=== PATIENT | male | born 1975 ===

== ENCOUNTER 2025-07-10 08:50 | Outpatient (AMB) | payer OTHER, SELFPAY ==
--- OUTSIDE RECORDS SUMMARY | 2024-07-17 08:00 | XMS_ITS | Encounter Summary ---
Author Organization [facility] Address [address] [place] [address] Care Team Providers Care Machinery Mechanic Name Role Phone Juan Diego Barroso MD Primary Care Provider [phone] Encounter Details Date Type Department Care Team (Late st Contact Info) Description 07/17/2024 8:00 AM EDT Hospital Encounter TH HISTORIC ENCOUNTERS EASTERN CONVERSION ONLY Brant Arce MD [address] [place] [phone] Social History Tobacco Use Types Packs/Day Years Used Date Smoking Tobacco: Never Smokeless Tobacco: Never Alcohol Use Standard Drinks/Week Comments Yes 0 (1 standard drink = 0.6 oz pur e alcohol) Housing Instability Answer Date Recorde d Are you worried that in the next 2 months you may not have stable housing? No 02/04/2025 Food Access & Nutrition Answer Date Rec orded Do you have access to a vari ety of food including fruits and vegetables? Yes 02/04/2025 Access to Healthcare Answer Date Record ed Within the last 3 months, ho w many times did you visit the emergency department for your medical care? 0 02/04/2025 Health Literacy Answer Date Recorded How often do you need to hav e someone help you when you read instructions, pamphlets, or other written material from your doctor or pharmacy? Never 02/04/2025 Caregiver: How often do you need to have someone help you when you read instructions, pamphlets, or other written material from your doctor or pharmacy? Not on file 02/04/2025 Financial Risk Answer Date Recorded How hard is it for you to pa y for the very basics like food, housing, medical care, and air conditioning / heating? Not very hard 02/04/2025 Transportation Answer Date Recorded Has the lack of transportati on kept you from meetings, work, or from getting things needed for daily living? No Has the lack of transportati on kept you from medical appointments or from getting medications? No 02/04/2025 Social Isolation Answer Date Recorded How often do you feel lonely or isolated from those around you? Sometimes 02/04/2025 Food Risk Answer Date Recorded Within the past 12 months we worried whether our food would run out before we got money to buy more. Never true 02/04/2025 Within the past 12 months th e food we bought just didn't last and we didn't have money to get more. Never true 02/04/2025 Dependent Care Answer Date Recorded Do you need help finding or paying for care for your loved ones. For example, home child care provider or elderly care for an older adult? No 02/04/2025 Education Answer Date Recorded Do you think completing more education or training, like finishing a GED, going to college, or learning a trade, would be helpful for you? No 02/04/2025 Employment and Income Answer Date Recor ded During the last four weeks, have you been actively looking for work? No 02/04/2025 Living Situation Answer Date Recorded What is your living situation? Unrecognized valu e 02/04/2025 Sex and Gender Information Value Date Recorded Sex Assigned at Not on file Legal Sex Male 1:02 PM EST Gender Identity Not on file Sexual Orientation Not on file documented as of this encounter Plan of Treatment Upcoming Encounters Date Type Department Care Team (Late st Contact Info) Description 12/30/2025 8:00 AM EDT Office Visit Adult Medicine [address] [phone] Juan Diego Barroso MD [address] [place] [address] 01/15/2026 8:30 AM EDT Consult Bariatric Surgery - [place] [address] [facility] [address] [place] [phone] Daya Gallardo PA [address] [place] [phone] 05/28/2026 8:30 AM EDT Ancillary Procedure Pulmonology - [place] [address] [facility] [address] [place] [phone] 05/28/2026 9:45 AM EDT Office Visit Pulmonology - [place] [address] [facility] [address] [place] [phone] Tammy Benitez, ЕЛЕНА [address] [place] [phone] documented as of this encounter Visit Diagnoses Not on filedocumented in this encounter Care Teams Machinery Mechanic Relationship Specialty Start Date End Date Juan Diego Barroso MD [address] [place] [phone] PCP - General Internal Medicine 06/18/16 documented as of this encounter
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
[2025-07-10 09:00] VITALS: BP 190/104; PULSE 98; RESP 20; O2SAT 99; BMI 38.9
--- OUTSIDE RECORDS SUMMARY | 2025-07-10 09:26 | XMS_ITS ---
Author Name [facility] Care Team Organization Name Specialty Phone Email Start Date End Da te [facility] BRUNILDA [facility] Primary Care 08/17/2022 4
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
--- OUTSIDE RECORDS SUMMARY | 2025-07-10 09:26 | XMS_ITS | Patient Health Record ---
Author Organization [facility] Address [address] [place] [address] Care Team Providers Care Vacuum Evaporation Operator Name Role Phone Juan Diego Barroso MD Primary Care Provider Unavailabl e Reason For Referral No Information Medications Medication SIG (Take, Route, Frequency, Duration) Notes Start Date End Date Status Chlorthalidone 25 MG Tablet 1 tablet in the morning with food Orally Once a day; Duration: 30 day(s) Active Albuterol Sulfate (2.5 MG/3ML) 0.083% Nebulization Solution 3 ml as needed Inhalation every 8 hrs Active Albuterol Sulfate HFA 108 (90 Base) MCG/ACT Aerosol Solution 2 puffs as needed Inhalation every 6 hrs Active Diclofenac Sodium 75 MG Tablet Delayed Release 1 tablet with food or milk Orally Twice a day; Duration: 30 day(s) Active Metoprolol Tartrate 100 MG Tablet 1 tablet with food Orally Twice a day; Duration: 30 day(s) Active Lisinopril 40 MG Tablet 1 tablet Orally Once a day; Duration: 30 day(s) Active amLODIPine Besylate 10 MG Tablet 1 tablet Orally Once a day; Duration: 30 day(s) Active ZTlido 1.8 % Patch 1 patch remove after 12 hours Externally Once a day; Duration: 30 days 08/20/2019 Active Lidocaine 5 % Ointment 1 application as needed Externally Three times a day; Duration: 30 days 09/24/2019 Active Gabapentin 800 MG Tablet 1 tablet Orally tid Active Spiriva HandiHaler 18 MCG Capsule 1 capsule by inhaling the contents of the capsule using the HandiHaler device Inhalation Once a day Active tiZANidine HCl 4 MG Tablet 1 tablet as n eeded Orally Three times a day Active Social History Tobacco Use: Social History Observation Description Date Details (start date - stop date) Never Smoker NA - NA Social History Tobacco Use: Social Info Question Answer Notes Tobacco Use/Smoking Are you a nonsmoker Additional Findings: Tobacco Non-User Current no n-smoker Additional Details Category Social Info Options Details Tobacco Use: Medical Marijuana Patient [facility] Problems Problem Type SNOMED Code ICD Code Onset Dates Problem Status W/U Status Risk Notes Problem Cervical spondylosis without myelopathy (679584764) Spondylosis without myelopathy or radiculopathy, cervical region (M47.812) Active confirmed Plan Of Treatment No Information Insurance Providers Payer Name Payer Address Payer Phone Subscriber Number Group Number Insured Name Patient Relationship to Insured Coverage Start Date Coverage End Date [facility] [address] [address] [place] [phone] [id number] TAWANA MARRERO Self - patient is the insured Medical (General) History Medical History History ICD Code HTN SOB High Cholesterol Neck pain Bilateral ear Nerve pain Pre Diabetic Lower back pain Right leg pain Right arm pain Surgical History Surgery Date(Month/Year) Neck surgery C 5-7 Jaw surgery Left lung surgery
== END 2025-07-10 09:33 | disposition home or self-care (01) ==
PROVIDERS: PCP Internal Medicine; Visit Provider Anesthesiology
DX: S83.206A Unspecified tear of unspecified meniscus, current injury, right knee, initial encounter (principal); M47.816 Spondylosis without myelopathy or radiculopathy, lumbar region; M47.812 Spondylosis without myelopathy or radiculopathy, cervical region; M25.561 Pain in right knee; E11.42 Type 2 diabetes mellitus with diabetic polyneuropathy; G89.4 Chronic pain syndrome
CPT/HCPCS: 99214

== ENCOUNTER → 2025-07-10 08:50 | Outpatient (BNVA) | payer OTHER, SELFPAY | PROVIDERS: PCP Internal Medicine; Visit Provider Anesthesiology | DX: G89.4 Chronic pain syndrome (principal); M25.561 Pain in right knee; S83.241A Other tear of medial meniscus, current injury, right knee, initial encounter; X58.XXXA Exposure to other specified factors, initial encounter; Y93.9 Activity, unspecified; Y92.9 Unspecified place or not applicable; Y99.9 Unspecified external cause status; M47.816 Spondylosis without myelopathy or radiculopathy, lumbar region; M47.812 Spondylosis without myelopathy or radiculopathy, cervical region; E11.42 Type 2 diabetes mellitus with diabetic polyneuropathy | CPT/HCPCS: 99212 ==

== ENCOUNTER 2025-08-07 08:25 | Outpatient (REF) | payer OTHER, SELFPAY ==
--- OUTSIDE RECORDS SUMMARY | 2024-07-17 08:00 | XMS_ITS | Encounter Summary ---
Author Organization [facility] Address [address] [place] [address] Care Team Providers Care Security Support Analyst Name Role Phone Juan Diego Barroso MD Primary Care Provider [phone] Encounter Details Date Type Department Care Team (Late st Contact Info) Description 07/17/2024 8:00 AM EDT Hospital Encounter TH HISTORIC ENCOUNTERS EASTERN CONVERSION ONLY Brant Arce MD [address] [place] [phone] Social History Tobacco Use Types Packs/Day [...] care for your loved ones. For example, early childhood services coordinator or elderly care for an older adult? [...] Care Team (Late st Contact Info) Description 08/22/2025 9:00 AM EST Consult Bariatric Surgery - [address] [place] [phone] Kev Ortiz MD [address] [place] [address] 12/30/2025 8:00 AM EDT Office Visit Adult Medicine [facility] [address] [place], [place] [phone] Juan Diego Barroso MD [address] [place] [address] 05/28/2026 8:30 AM EDT Ancillary Procedure Pulmonology - [place] [address] [phone] 05/28/2026 9:45 AM EDT Office Visit Pulmonology [address] [phone] Tammy Benitez, [employer] [address] [place] [phone] documented as of this encounter Visit Diagnoses Not on filedocumented in this encounter Care Teams Security Support Analyst Relationship Specialty Start Date End Date Juan Diego Barroso MD [address] [place] [address] PCP - General Internal Medicine 06/18/16 documented as of this encounter
--- OUTSIDE RECORDS SUMMARY | 2025-08-08 09:05 | XMS_ITS | Clinical Summary ---
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 32 g 04/02/20 25 Active nynkngky-jgo-k errous sulfate 4.5 mg iron powder in [...] of breath. 18 g 5 05/28/20 25 2025 Active hydroCHLOROthi azide (HYDRODIURIL) 25 mg tablet [...] unspecified COPD type (CMS/HCC V24, CMS/HCC V28) Take 3 mL (2.5 mg total) by nebulization every 4 (four) hours if needed for wheezing. 300 mL 06/22/20 25 2025 Active omeprazole (PriLOSEC) [address] capsule Take 1 Capsule by mouth daily. 90 capsule 1 06/27/20 25 Active sucralfate (CARAFATE) 1 gram tablet Take 1 Tablet by mouth 4 times daily. 360 tablet 1 06/27/20 25 Active diclofenac (VOLTAREN) 75 mg EC tablet Take 1 tablet (75 mg total) by mouth 2 (two) times a day if needed (pain). Do not crush, chew, or split. 180 tablet 1 07/18/20 25 Active loratadine (CLARITIN) 10 mg tablet Take 1 Tablet by mouth daily 90 tablet 07/18/20 25 Active pregabalin (LYRICA) 150 mg capsule Take 1 capsule (150 mg total) by mouth 2 (two) times a day. 60 capsule 07/26/20 25 Active diclofenac (VOLTAREN) 75 mg EC tablet Take 1 tablet (75 mg total) by mouth 2 (two) times a day if needed (pain). Do not crush, chew, or split. 180 tablet 04/02/20 25 2024 Discontinued loratadine (CLARITIN) 10 mg tablet Take 1 Tablet by mouth daily 90 tablet 04/25/20 25 2024 Discontinued pregabalin (LYRICA) 150 mg capsule Take 1 Capsule by mouth 2 times daily. 60 capsule 05/24/20 25 2024 Discontinued(R eorder) Active Problems Problem Noted Date Diagnosed Date Type 2 diabetes mellitus wit hout complication, without long-term current use of insulin ([facility] V24, [facility] V28) 06/20/2025 Gynecomastia, male 09/09/2022 Fatty [...] 8:30 AM EDT Office Visit Adult Medicine [address] [phone] Juan Diego Barroso MD Type 2 diabetes mellitus without complication, without long-term current use of insulin ([facility] V24, [facility] V28) (Primary Dx); Primary hypertension; Pure hypercholesterolemia; Encounter for long-term (current) use of medications; Weight gain; Morbid obesity with BMI of 40.0-44.9, adult ([facility] V24, [facility] V28); Chronic obstructive pulmonary disease, unspecified COPD type ([facility] V24, [facility] V28); Other chronic pain; Chronic pain of right knee 05/29/2025 Telephone Pulmonology [facility] [address] [phone] Annetta Berumen [place] 05/28/2025 8:30 AM EDT Office Visit Pulmonology [facility] [address] [phone] Tammy Benitez NP Chronic obstructive pulmonary disease, unspecified COPD type ([facility] V24, [facility] V28) (Primary Dx); Shortness of breath; Pulmonary nodules; Scarring of lung; Morbid obesity due to excess calories ([facility] V24, [facility] V28) from Last 3 Months Immunizations Immunization [...] Medical History Relation Name Comments Hypertension Father [place]- multiple -1 st in 40's Relation Name [...] for your loved ones. For example, child support specialist or elderly care for an older adult? [...] 9:00 AM EST Consult Bariatric Surgery - [address] [place] [phone] Kev Ortiz MD [address] [place] [address] 12/30/2025 8:00 AM EDT Office Visit Adult Medicine [address] [phone] Juan Diego Barroso MD [address] [place] [address] 05/28/2026 8:30 AM EDT Ancillary Procedure Pulmonology - [address] [place] [phone] 05/28/2026 9:45 AM EDT Office Visit Pulmonology - [address] [place] [phone] Tammy Benitez, [address] [place] [phone] Health Maintenance Due Date Last Done Comments [...] - Td or Tdap) 05/23/2023 05/23/2013, 01/26/2006 RSV Immunization Adult Patients (1 - Risk 50-74 years 1-dose series) 2024 Influenza Vaccine (#1) 2025 , 07/28/2021, 08/05/2017, [...] 06/20/2030 06/20/2025, 12/10/2024, 04/20/2024, Additional history exists HIV Screening Completed 08/27/2018 Hepatitis C Screening [...] complication, without long-term current use of insulin ([facility] V24, [facility] V28) LIPID PANEL WITH REFLEX TO DIRECT LDL Routine 06/20/2025 9:11 AM EDT Pure hypercholesterolemia COMPREHENSIVE METABOLIC PANEL Routine 06/20/2025 9:11 AM EDT Type 2 diabetes mellitus without complication, without long-term current use of insulin ([facility] V24, [facility] V28) Primary hypertension Encounter for long-term [...] LAB CHEMISTRY METHOD 06/20/2025 1:40 PM EDT [facility] Blood Venous blood specimen / Unknown Venipuncture / Unknown 06/20/2025 9:11 AM EDT 06/20/2025 9:11 AM EDT us Juan Diego Barroso MD LAB BLOOD ORDERABLES Final Resu lt [facility] [address] [place] [address], [place] [phone] * (ABNORMAL) Lipid panel with reflex to direct LDL (06/20/2025 9:11 AM EDT) Cholesterol 178 0 - 200 mg/dL LAB CHEMISTRY METHOD 06/20/2025 1:06 PM EDT [facility] Triglycerides 193(H) 0 - 150 mg/dL LAB CHEMISTRY METHOD 06/20/2025 1:06 PM EDT [facility] HDL 51 >=40 mg/dL LAB CHEMISTRY METHOD 06/20/2025 1:06 PM EDT [facility] LDL Calculated 88 0 - 100 mg/dL LAB CHEMISTRY METHOD 06/20/2025 1:06 PM EDT [facility] Comment:Estimated LDL Calcul ated using equation: Total cholesterol - HDL cholesterol - (Triglycerides/5) VLDL Cholesterol Joce 38.6 mg/dL LAB CHEMISTRY METHOD 06/20/2025 1:06 PM EDT [facility] Non HDL Chol. (LDL+VLDL) 127 <145 mg/dL LAB CHEMISTRY METHOD 06/20/2025 1:06 PM [facility] Chol/HDL Ratio 3.5 0.0 - 4.4 LAB CHEMISTRY METHOD 06/20/2025 1:06 PM [facility] Blood Venous blood specimen / Unknown Venipuncture / Unknown 06/20/2025 9:11 AM EDT 06/20/2025 9:11 AM EDT us Juan Diego Barroso MD LAB BLOOD ORDERABLES Final Resu lt [facility] [address] [place] [address], * (ABNORMAL) Hemoglobin A1c (06/20/2025 9:11 AM EDT) Pathologist [facility] Hemoglobin A1C 6.6(H) <6.5 % LAB CHEMISTRY METHOD 06/20/2025 12:11 PM EDT [facility] Mean Bld Glu Estim. 143 mg/dL LAB CHEMISTRY METHOD 06/20/2025 12:11 PM [facility] Blood Venous blood specimen / Unknown Venipuncture / Unknown 06/20/2025 9:11 AM EDT 06/20/2025 9:11 AM EDT us Juan Diego Barroso MD LAB BLOOD ORDERABLES Final Resu lt [facility] [address] [place] [address], [place] [phone] * (ABNORMAL) Comprehensive metabolic panel (06/20/2025 9:11 AM EDT) Sodium 137 133 - 145 mmol/L LAB CHEMISTRY METHOD 06/20/2025 1:06 PM [facility] Potassium 3.5 3.5 - 5.5 mmol/L LAB CHEMISTRY METHOD 06/20/2025 1:06 PM [facility] Chloride 104 96 - 110 mmol/L LAB CHEMISTRY METHOD 06/20/2025 1:06 PM [facility] CO2 29 21 - 32 mmol/L LAB CHEMISTRY METHOD 06/20/2025 1:06 PM [facility] Anion Gap 4 3 - 11 LAB CHEMISTRY METHOD 06/20/2025 1:06 PM [facility] Glucose 118(H) 70 - 100 mg/dL LAB CHEMISTRY METHOD 06/20/2025 1:06 PM [facility] BUN 13 5 - 25 mg/dL LAB CHEMISTRY METHOD 06/20/2025 1:06 PM [facility] Creatinine 1.07 0.70 - 1.30 mg/dL LAB CHEMISTRY METHOD 06/20/2025 1:06 PM [facility] eGFR 85 >=60 mL/min/1. 73m2 LAB CHEMISTRY METHOD 06/20/2025 1:06 PM [facility] Comment:Calculation based on the Chronic Kidney Disease Epidemiology Collaboration (CKD-EPI) equation refit without adjustment for race. BUN/Creatinine Ratio 12.1 LAB CHEMISTRY METHOD 06/20/2025 1:06 PM [facility] Calcium 9.8 8.5 - 10.5 mg/dL LAB CHEMISTRY METHOD 06/20/2025 1:06 PM [facility] AST (SGOT) 58(H) 10 - 42 unit/L LAB CHEMISTRY METHOD 06/20/2025 1:06 PM [facility] ALT (SGPT) 89(H) 10 - 60 unit/L LAB CHEMISTRY METHOD 06/20/2025 1:06 PM [facility] Alkaline Phosphatase 138(H) 42 - 121 unit/L LAB CHEMISTRY METHOD 06/20/2025 1:06 PM [facility] Total Protein 7.9 6.0 - 8.0 g/dL LAB CHEMISTRY METHOD 06/20/2025 1:06 PM [facility] Albumin 4.2 3.2 - 5.0 g/dL LAB CHEMISTRY METHOD 06/20/2025 1:06 PM [facility] Total Bilirubin 0.3 0.0 - 1.4 mg/dL LAB CHEMISTRY METHOD 06/20/2025 1:06 PM [facility] Blood Venous blood specimen / Unknown Venipuncture / Unknown 06/20/2025 9:11 AM EDT 06/20/2025 9:11 AM EDT us Juan Diego Barroso MD LAB BLOOD ORDERABLES Final Resu lt [facility] [address] [place] [address], [place] [phone] * Urine Albumin Creatinine Ratio (07/28/2021) Urine Albumin Creatinine Ratio Abstracted Kamar Provider HEALTH MAINTENANCE Final Result * HIV Screening (08/27/2018) HIV Screening Abstracted us Historical Provider HEALTH MAINTENANCE Final Result * Hepatitis C Screening (08/27/2018) Hepatitis C Screening Abstracted us Historical Provider HEALTH MAINTENANCE Final Result from Last 3 Months or Most Recently Relevant to Health Maintenance Insurance [facility] [employer] [place] [address] Care Teams Ballast Regulator Operator Relationship Specialty Start Date End Date Juan Diego Barroso MD [address] [place] [phone] PCP - General Internal Medicine 06/18/16
== END 2025-08-07 08:26 | disposition home or self-care (01) ==
LOC: HO.HOSX 08:25
PROVIDERS: Visit Provider Orthopaedic Surgery
DX: Z13.89 Encounter for screening for other disorder (principal)